=== PATIENT | female | born 1970 | race African-American/Black ===

== ENCOUNTER → 2024-03-05 13:38 | Outpatient (REF) | payer OTHER, SELFPAY | LOC: WDC 13:38 | PROVIDERS: ATTENDING PHYSICIAN Family Medicine | DX: Z12.31 Encounter for screening mammogram for malignant neoplasm of breast (principal) | CPT/HCPCS: 77063; 77067 ==

== ENCOUNTER → 2024-07-20 15:18 | Outpatient (REF) | payer OTHER, SELFPAY | LOC: RAD 15:18 | PROVIDERS: ATTENDING PHYSICIAN Family Medicine | DX: R76.12 Nonspecific reaction to cell mediated immunity measurement of gamma interferon antigen response without active tuberculosis (principal) | CPT/HCPCS: 71046 ==

== ENCOUNTER 2024-11-28 16:52 | Emergency (ER) | payer OTHER, SELFPAY ==
[2024-11-28 16:57] VITALS: BP 128/83
--- NOTE | 2024-11-28 18:19 | ED.GENMED ---
History of Present Illness
General
Chief Complaint: Back Pain
Source: patient
Exam Limitations: none
Time Seen by Provider: 11/28/24 18:07
History of Present Illness
History of Present Illness:
54-year-old female presents complaining of 2 days worth of headache and upper back pain. She states her head hurts worse when she turns her head. 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 She is not
sure if she injured herself there. Denies head strike. No fever. No cough. No vomiting. No chest pain or vision change. She was seen by her family doctor yesterday and given ibuprofen and cyclobenzaprine which helps for short period time and
the pain returns. She is healthy otherwise. No other complaints at this time
Past History
Past History
ED Past Medical History: None
ED Past Surgical History: None
Social History
Tobacco: Non-smoker
Personal:
Living: with family
Family History
Family History: Other (Noncontributory)
Phy Exam
Physical Exam
Physical Exam:
General: Well-appearing female no acute respiratory distress
HEENT: Normocephalic atraumatic pupils equal round reactive to light
Heart: Regular rate and rhythm no murmurs
Lungs: Clear no wheeze
Musculoskeletal exam: There is tenderness about the the mid thoracic spine on the paraspinous area on the left side. There is also slight tenderness over the paraspinous area of the cervical spine. Good range of motion cervical spine no nuchal
rigidity
: Alert conversing appropriately no meningeal signs
Course
Orders/Labs/Results
Orders:
Orders
11/28/24 18:18
CT Head W/o Iv Contrast Urgent
Comment:
Reason For Exam: headache
CR Cervical Spine 2 or 3 Vw Urgent
Comment:
Reason For Exam: neck pain
CR Thoracic Spine 3 Views Urgent
Comment:
Reason For Exam: back pain
Vital Signs
Initial and Last Documented VS:
Initial Vital Signs
Temp Pulse Resp BP Pulse Ox
98.4 F 92 18 128/83 100
11/28/24 16:57 11/28/24 16:57 11/28/24 16:57 11/28/24 16:57 11/28/24 16:57
Last Documented Vital Signs
Temp Pulse Resp BP Pulse Ox
98.7 F 84 16 127/74 98
11/28/24 19:11 11/28/24 21:25 11/28/24 21:25 11/28/24 21:25 11/28/24 21:25
MDM/Problems Addressed
Differential Diagnosis Includes:
Patient notes moderate and worsening headache with associated back pain. Suspect poss muscular strain versus radiculopathy. Given severity of headache and worsening headache, patient quite concerned, CT was ordered. X-ray thoracic spine spine
pending
*Critical Care Note
Total Time (30-74mins, 75-104mins- exclusive of procedures): Not Applicable
Update Note
Update Note:
CT head negative x-ray cervical and thoracic spine without acute findings. Suspect cervical strain causing headache. She was prescribed ibuprofen and Flexeril. Will add prednisone and recommend Lidoderm patches. No concerning findings on workup.
Stable for discharge
ED Attending Note
-
Portions of this chart may have been created with voice recognition software.� Occasional wrong word or��sound alike� substitutions may have occurred due to the inherent limitations of voice recognition software.
Discharge Plan
Departure
Patient Disposition: Home (Routine Discharge)
Date of Disposition: 11/28/24
Time of Disposition: 22:02
Patient with high blood pressure during this ER visit?: No
Discharge Problem:
Cervical strain, acute
Instructions: Upper Back Pain (DC)
Prescriptions:
New
prednisone 10 mg Tablet
See Rx Instructions .ROUTE .COMPLEX Qty: 30 0RF
Rx Instructions:
Take By Mouth:
40 mg daily x3 days, 30 mg daily x3 days,
20 mg daily x3 days, 10 mg daily x3 days.
No Action
levothyroxine 100 mcg Tablet
100 mcg PO DAILY
cholecalciferol (vitamin D3) [Vitamin D3] 25 mcg (1,000 unit) Tablet
75 mcg PO DAILY
Referrals:
Liset Doyle, DO [Family Provider] -
Stand Alone Forms: Return to Work
Activity Restrictions/Additional Instructions:
Use warm compresses and Lidoderm patches for additional pain relief. Continue muscle relaxer. Use steroid as directed. Return if worse otherwise follow-up with your doctor
Interventions
Interventions:
*Risk Screen - Suicide Last Done: 11/28/24 19:02
*General Assessment Last Done: 11/28/24 19:02
*Neglect/Abuse Screening Last Done: 11/28/24 19:02
*ED- Fall Risk Assessment Last Done: 11/28/24 19:02
*ED COVID-19 Vaccine History Last Done: 11/28/24 19:02
ED-Musculoskeletal Assessment Last Done: 11/28/24 19:13
ED- Neurological Assessment Last Done: 11/28/24 19:13
Discharge Date and Time
Print Language: TURKMEN
[2024-11-28 19:02] VITALS: BMI 22.8
[2024-11-28 19:05] VITALS: BP 131/62
--- NOTE | 2024-11-28 19:08 | EDRN ---
Pt complains of pain top of her head down her spinal column that started on Friday. Pt last took motrin 600mg at 1600 and says it helps the pain but pain returns. Pain constant. Pt says it started like a caffeine withdrawal pain but the head pain
has moved all over her head this weekend. No known injury. No photophobia, n/v, dizziness, weakness. Pt notes more pain when she walks in spinal column, no pain at rest. Pt feels achy like she is having cold symptoms. No fever/cough. Pt is
always chilled.
[2024-11-28 21:25] VITALS: BP 127/74
== END 2024-11-28 22:09 | disposition home or self-care (01) ==
LOC: EMR 16:52
PROVIDERS: EMERGENCY PHYSICIAN Emergency Medicine; FAMILY PHYSICIAN Family Medicine
DX: S16.1XXA Strain of muscle, fascia and tendon at neck level, initial encounter (principal); X58.XXXA Exposure to other specified factors, initial encounter
CPT/HCPCS: 99284; 70450; 72040; 72072

== ENCOUNTER → 2025-05-13 10:35 | Outpatient (REF) | payer OTHER, SELFPAY | LOC: HWWDC 10:35 | PROVIDERS: ATTENDING PHYSICIAN Family Medicine | DX: Z12.31 Encounter for screening mammogram for malignant neoplasm of breast (principal) | CPT/HCPCS: 77063; 77067 ==